=== PATIENT | female | born 1985 | race American Indian/Alaskan Native ===

== ENCOUNTER 2018-11-10 12:08 | Emergency (ER) | payer MEDICARE ==
--- NOTE | 2018-11-10 12:50 | Event Note ---
ED Screening Note Date of service: 11/10/18 Time: 12:48 ED Screening Note: 33 y o female presents with left frontal/orbital headache x last night, 5/10 intensity no trauma, neg v/n/ blurred vision This initial assessment/diagnostic orders/clinical plan/treatment(s) is/are subject to change based on patients health status, clinical progression and re- assessment by fellow clinical providers in the ED. Further treatment and workup at subsequent clinical providers discretion. Patient/guardian urged not to elope from the ED as their condition may be serious if not clinically assessed and managed. Initial orders include: acc eval
[2018-11-10 12:51] VITALS: BP 123/88
[2018-11-10] MEDS ORDERED: ONDANSETRON 4 MG ODT TAB PO ONE (15:59)
[2018-11-10] MEDS ORDERED: KETOROLAC 30 MG/1 ML INJ IM ONE (15:59)
--- NOTE | 2018-11-10 16:07 | Emergency Department Report ---
ED Headache HPI - General Chief Complaint: Headache Stated Complaint: MIGRAINE Time Seen by Provider: 11/10/18 12:48 Source: patient, RN notes reviewed Exam Limitations: no limitations - History of Present Illness Initial Comments: This is a 33-year-old -[place] female who presents to the emergency room with a headache for 1 day. Patient reports sinus pressure around left eye and congestion for 3 weeks with congestion. Patient states headache for 24 hours. She is taking NSAIDs and cold and flu medication with no improvement of symptoms. Reports headache is worse when she leans forward. She denies fever, chills, nausea, vomiting, chest pain, coryza, shortness of breath. Timing/Duration: 24 hours Quality: severe Head Injury Location: frontal Recent Head Trauma: no recent headache/trauma Modifying Factors: improves with: movement Associated Symptoms: facial pain, nasal congestion, nasal drainage. denies: confusion, fatigue, fever/chills, flushing, loss of consciousness, nausea/vomiting, numbness in legs/feet, rash, seizures, sinus infection, stiff neck, vision changes, weakness Allergies/Adverse Reactions: Allergies No Known Allergies Allergy (Verified 08/26/14 12:31) Home Medications: Ambulatory Orders HYDROcodone/APAP 5-325 [[place] 5-325 mg TAB] 1 each PO Q6H PRN #20 tablet 02/16/15 Pnv Plus Multivit Tab 1 tab PO DAILY 02/17/15 Amoxicillin/Potassium Clav [Augmentin 875-125 Tablet] 1 each PO BID #10 tablet 11/10/18 Fluticasone [Flonase] 1 spray NS QDAY #1 bottle 11/10/18 Ibuprofen [Motrin 800 MG tab] 800 mg PO Q8HR PRN #30 tablet 11/10/18 ED Review of Systems ROS: Stated complaint: MIGRAINE Other details as noted in HPI Constitutional: denies: chills, fever Eyes: denies: eye pain, eye discharge, vision change ENT: congestion. denies: ear pain, throat pain Respiratory: denies: cough, shortness of breath, wheezing Cardiovascular: denies: chest pain, palpitations Gastrointestinal: denies: abdominal pain, nausea, diarrhea Skin: denies: rash, lesions Neurological: headache. denies: weakness, paresthesias Psychiatric: denies: anxiety, depression ED Past Medical Hx - Past Medical History Hx Hypertension: No Hx Congestive Heart Failure: No Hx Diabetes: No Hx Deep Vein Thrombosis: No Hx Renal Disease: No Hx Sickle Cell Disease: No Hx Seizures: No Hx Asthma: No Hx COPD: No Additional medical history: MRSA - Surgical History Additional Surgical History: left shoulder - Social History Smoking Status: Never Smoker Substance Use Type: None - Medications Home Medications: Home Medications Medication Instructions Recorded Confirmed Last Taken Type HYDROcodone/APAP 5-325 [[place] 1 each PO Q6H PRN #20 tablet 02/16/15 Unknown Rx 5-325 mg TAB] Pnv Plus Multivit Tab 1 tab PO DAILY 02/17/15 02/17/15 Unknown History Amoxicillin/Potassium Clav 1 each PO BID #10 tablet 11/10/18 Unknown Rx [Augmentin 875-125 Tablet] Fluticasone [Flonase] 1 spray NS QDAY #1 bottle 11/10/18 Unknown Rx Ibuprofen [Motrin 800 MG tab] 800 mg PO Q8HR PRN #30 tablet 11/10/18 Unknown Rx ED Physical Exam - General Limitations: No Limitations General appearance: alert, in no apparent distress - Eye Eye exam: Present: normal appearance - ENT ENT exam: Present: mucous membranes moist, TM's normal bilaterally, normal external ear exam, other (turbinates mildly congested with mucoid discharge, tenderness over frontal sinuses) - Neck Neck exam: Present: normal inspection - Respiratory Respiratory exam: Present: normal lung sounds bilaterally. Absent: respiratory distress - Cardiovascular Cardiovascular Exam: Present: regular rate, normal rhythm. Absent: systolic murmur, diastolic murmur, rubs, gallop - GI/Abdominal GI/Abdominal exam: Present: soft, normal bowel sounds - Neurological Exam Neurological exam: Present: alert, oriented X3, normal gait - Psychiatric Psychiatric exam: Present: normal affect, normal mood - Skin Skin exam: Present: warm, dry, intact, normal color. Absent: rash ED Course Vital Signs 11/10/18 11/10/18 12:48 16:16 Temperature 98.2 F Pulse Rate 90 Respiratory 18 18 Rate Blood Pressure 123/88 O2 Sat by Pulse 100 Oximetry ED Medical Decision Making - Medical Decision Making Patient examined by me and stable. No distress noted. Vitals normal. Analgesics while in the ER. Frontal sinus tender on palpation, turbinates moderately congested with purulent discharge. These findings are suggestive of acute sinusitis. Start augmentin, ibuprofen, and floanse. Reviewed results with patient. Discharged home stable. Follow up with Primary Care Provider in 2-3 days. Critical care attestation.: If time is entered above; I have spent that time in minutes in the direct care of this critically ill patient, excluding procedure time. ED Disposition Clinical Impression: Headache Qualifiers: Headache type: tension-type Headache chronicity pattern: acute headache Intractability: not intractable Qualified Code(s): G44.209 - Tension-type headache, unspecified, not intractable Frontal sinusitis Qualifiers: Chronicity: acute Recurrence: non-recurrent Qualified Code(s): J01.10 - Acute frontal sinusitis, unspecified Disposition: TO HOME OR SELFCARE Is pt being admited?: No Does the pt Need Aspirin: No Condition: Stable Instructions: Tension Headache (ED), Sinusitis (ED) Additional Instructions: Use warm moist compresses over sinuses. Use ibuprofen or Tylenol for pain. Use nasal saline spray. Avoid taking antihistamines. Follow up with Primary Care Provider if fever, short of breath, chest pain, or symptoms do not improve as discussed. Prescriptions: Amoxicillin/Potassium Clav [Augmentin 875-125 Tablet] 1 each PO BID #10 tablet Fluticasone [Flonase] 1 spray NS QDAY #1 bottle Ibuprofen [Motrin 800 MG tab] 800 mg PO Q8HR PRN #30 tablet PRN Reason: Pain Referrals: [facility] [Outside] - 3-5 Days [facility] [Outside] - 3-5 Days [facility] [Outside] - 3-5 Days Forms: Work/School Release Form(ED) Time of Disposition: 16:57
== END 2018-11-10 17:32 | disposition home or self-care (01) ==
LOC: ED 12:08
DX: G44.209 Tension-type headache, unspecified, not intractable (principal); J01.10 Acute frontal sinusitis, unspecified; Z79.1 Long term (current) use of non-steroidal anti-inflammatories (NSAID); Z79.899 Other long term (current) drug therapy
CPT/HCPCS: 96372; 99282; J1885; Q0162

== ENCOUNTER 2018-11-23 09:26 | Emergency (ER) | payer MEDICARE ==
[2018-11-23 11:44] LABS: HCG Qualitative,Urine Negative (Negative)
--- NOTE | 2018-11-23 13:08 | Emergency Department Report ---
ED Female HPI - General Chief complaint: Vaginal Bleeding Stated complaint: VAG BLEEDING/HEADACHE Time Seen by Provider: 11/23/18 11:19 Source: family Mode of arrival: Ambulatory Limitations: No Limitations - History of Present Illness Initial comments: Patient is a 33-year-old female presents to ED complaining of residual. For the past 3 days. Patient states that it is ago she began having vaginal bleed similar to her menstrual cycle. Patient states the last nausea. With approximately simples she was surprised that the start of bleeding. Patient denies any control or taking any medications. Patient denies fevers/chills/nausea vomiting/abdominal pain MD Complaint: vaginal bleeding Severity: mild - Related Data Home Medications Medication Instructions Recorded Confirmed Last Taken Pnv Plus Multivit Tab 1 tab PO DAILY 02/17/15 02/17/15 Unknown Previous Rx's Medication Instructions Recorded Last Taken Type HYDROcodone/APAP 5-325 [[place] 1 each PO Q6H PRN #20 tablet 02/16/15 Unknown Rx 5-325 mg TAB] Amoxicillin/Potassium Clav 1 each PO BID #10 tablet 11/10/18 Unknown Rx [Augmentin 875-125 Tablet] Fluticasone [Flonase] 1 spray NS QDAY #1 bottle 11/10/18 Unknown Rx Ibuprofen [Motrin 800 MG tab] 800 mg PO Q8HR PRN #30 tablet 11/23/18 Unknown Rx Allergies Allergy/AdvReac Type Severity Reaction Status Date / Time No Known Allergies Allergy Verified 08/26/14 12:31 ED Review of Systems ROS: Stated complaint: VAG BLEEDING/HEADACHE Other details as noted in HPI Comment: All other systems reviewed and negative ED Past Medical Hx - Past Medical History Previous Medical History?: Yes Hx Hypertension: No Hx Congestive Heart Failure: No Hx Diabetes: No Hx Deep Vein Thrombosis: No Hx Renal Disease: No Hx Sickle Cell Disease: No Hx Seizures: No Hx Asthma: No Hx COPD: No Additional medical history: MRSA - Surgical History Past Surgical History?: Yes Additional Surgical History: left shoulder - Social History Smoking Status: Never Smoker Substance Use Type: None - Medications Home Medications: Home Medications Medication Instructions Recorded Confirmed Last Taken Type HYDROcodone/APAP 5-325 [[place] 1 each PO Q6H PRN #20 tablet 02/16/15 Unknown Rx 5-325 mg TAB] Pnv Plus Multivit Tab 1 tab PO DAILY 02/17/15 02/17/15 Unknown History Amoxicillin/Potassium Clav 1 each PO BID #10 tablet 11/10/18 Unknown Rx [Augmentin 875-125 Tablet] Fluticasone [Flonase] 1 spray NS QDAY #1 bottle 11/10/18 Unknown Rx Ibuprofen [Motrin 800 MG tab] 800 mg PO Q8HR PRN #30 tablet 11/23/18 Unknown Rx ED Physical Exam - General Limitations: No Limitations General appearance: alert, in no apparent distress - Head Head exam: Present: atraumatic, normocephalic - Eye Eye exam: Present: normal appearance - ENT ENT exam: Present: mucous membranes moist - Neck Neck exam: Present: normal inspection - Respiratory Respiratory exam: Present: normal lung sounds bilaterally. Absent: respiratory distress - Cardiovascular Cardiovascular Exam: Present: regular rate, normal rhythm. Absent: systolic murmur, diastolic murmur, rubs, gallop - GI/Abdominal GI/Abdominal exam: Present: soft, normal bowel sounds - Extremities Exam Extremities exam: Present: normal inspection - Back Exam Back exam: Present: normal inspection - Neurological Exam Neurological exam: Present: alert, oriented X3 - Psychiatric Psychiatric exam: Present: normal affect, normal mood - Skin Skin exam: Present: warm, dry, intact, normal color. Absent: rash ED Course Vital Signs 11/23/18 09:50 Temperature 98.2 F Pulse Rate 80 Respiratory 18 Rate Blood Pressure 126/77 [right] O2 Sat by Pulse 99 Oximetry ED Medical Decision Making - Medical Decision Making 33-year-old female presents with dysfunctional uterine bleed. Patient is having heavy bleeding at this time. test is negative Discussed findings with the patient. Discussed the patient to follow up with [facility] [employer] as referred. On my examination patient is a nontender abdomen and is in no distress at this time. Patient is hemodynamically stable and is to follow-up with [employer] [facility] as referred. Critical care attestation.: If time is entered above; I have spent that time in minutes in the direct care of this critically ill patient, excluding procedure time. ED Disposition Clinical Impression: Irregular bleeding, Menometrorrhagia Disposition: - TO HOME OR SELFCARE Is pt being admited?: No Does the pt Need Aspirin: No Condition: Stable Instructions: Dysfunctional Uterine Bleeding (ED) Additional Instructions: Make sure to follow up with the primary care physician as discussed. Take all your medications as you've been prescribed. If you have any worsening symptoms or develop new symptoms please return to ED immediately. Prescriptions: Ibuprofen [Motrin 800 MG tab] 800 mg PO Q8HR PRN #30 tablet PRN Reason: Pain Referrals: PRIMARY CARE, [Primary Care Provider] - 3-5 Days [facility] [Outside] - 3-5 Days [facility] [Outside] - 3-5 Days [facility] [Provider Group] - 3-5 Days [facility] [Provider Group] - 3-5 Days Forms: Work/School Release Form(ED) Time of Disposition: 13:18
[2018-11-23 13:45] VITALS: BP 124/71
== END 2018-11-23 13:43 | disposition home or self-care (01) ==
LOC: ED 09:26
DX: N92.1 Excessive and frequent menstruation with irregular cycle (principal); Z86.14 Personal history of Methicillin resistant Staphylococcus aureus infection; Z98.890 Other specified postprocedural states; Z79.899 Other long term (current) drug therapy
CPT/HCPCS: 81025

== ENCOUNTER 2020-11-19 21:09 | Emergency (ER) | payer MEDICARE ==
--- NOTE | 2020-11-19 21:50 | Event Note ---
ED Screening Note ED Screening Note: LEFT SIDE SHOULDER- CHEST AND SCAPULA PAIN SHARP IN NATURE STARTED THIS AM WORSE TONIGHT ANXIOUS NO FALL OR TRAUMA NO FEVER OR CHILLS INC RR/ TACHYCARDIA PMH MRSA L SHOULDER REQUIRING SURGERY LMP 9- RX NONE DENIES C/E/D DID NOT GET COVID IMMUNIZATION This initial assessment/diagnostic orders/clinical plan/treatment(s) is/are subject to change based on patients health status, clinical progression and re- assessment by fellow clinical providers in the ED. Further treatment and workup at subsequent clinical providers discretion. Patient/guardian urged not to elope from the ED as their condition may be serious if not clinically assessed and managed. Initial orders include: LABS/MONITOR/URI/PE
--- NOTE | 2020-11-19 21:58 | Emergency Department Report ---
ED General Adult HPI - General Chief complaint: Chest Pain Stated complaint: Left-sided neck pain, left lateral thorax pain, chest wall pain Time Seen by Provider: 11/19/20 21:40 Source: patient, RN notes reviewed Mode of arrival: Ambulatory Limitations: No Limitations - History of Present Illness Initial comments: The patient was evaluated in the emergency department for symptoms described in the history of present illness. He/she was evaluated in the context of the global COVID-19 pandemic, which necessitated consideration that the patient might be at risk for infection with the virus that causes COVID-19. Institutional protocols and algorithms that pertain to the evaluation of patients at risk for COVID-19 are in a state of rapid change based on information released by regulatory bodies including the CDC and federal and state organizations. These policies and algorithms were followed during the patient's care in the emergency department. Please note that these policies, procedures and recommendations changed on a rapid basis. During the history and physical examination, I am chaperoned by Alon Laurent The patient is a right-hand dominant female, who is 35 years old, who is not known to myself previously. The patient has a very distant history of orthopedic surgery for her left shoulder, and is right-hand dominant. She s tates that she is not . The patient presents to the ER today with a complaint of approximately 15 hours of nontraumatic left paracervical muscular pain, left posterior scapular muscular pain, left lateral thoracic muscular pain, anterior chest wall pain. The patient states her pain started in her left shoulder, and then involved her left neck, left posterior thorax, and left anterior chest. Her pain is throbbing and aching, increases with palpation and range of motion, and it decreases with rest. She denies travel, surgery, immobilization, oral contraceptive use, leg pain, leg swelling, DVT and pulmonary embolism risk factors, and denies a personal/family history of CAD, PE, DVT. The patient has not taking any pain medication at home. The patient denies Covid symptoms. The patient denies exertional shortness of breath. The patient denies additional complaints at this time. The patient is adamant that she is not . -: hour(s) Location: neck, chest, back, left, upper extremity Radiation: other (As per history of present illness) Quality: other Consistency: other Improves with: other Worsens with: other - Related Data Previous Rx's Medication Instructions Recorded Last Taken Type Fluticasone [Flonase] 1 spray NS QDAY #1 bottle 11/10/18 Unknown Rx Acetaminophen [Non-Aspirin Extra 500 mg PO Q6HR PRN #30 tablet 11/20/20 Unknown Rx Strength] Vit-Fe Fumar-FA [ 1 tab PO QDAY #30 tablet 11/20/20 Unknown Rx Vitamin] Allergies Allergy/AdvReac Type Severity Reaction Status Date / Time No Known Allergies Allergy Verified 11/19/20 21:25 ED Review of Systems ROS: Stated complaint: LEFT SIDE AND CHEST PAIN X4HRS Other details as noted in HPI Constitutional: denies: fever Eyes: denies: eye discharge ENT: denies: epistaxis Respiratory: denies: cough Cardiovascular: chest pain Gastrointestinal: denies: abdominal pain, nausea, vomiting, hematemesis, melena, hematochezia Genitourinary: denies: abnormal menses Musculoskeletal: back pain, arthralgia, myalgia Neurological: denies: weakness Psychiatric: anxiety Hematological/Lymphatic: denies: easy bleeding ED Past Medical Hx - Past Medical History Hx Hypertension: No Hx Congestive Heart Failure: No Hx Diabetes: No Hx Deep Vein Thrombosis: No Hx Renal Disease: No Hx Sickle Cell Disease: No Hx Seizures: No Hx Asthma: No Hx COPD: No Additional medical history: MRSA - Surgical History Additional Surgical History: left shoulder - Social History Smoking Status: Never Smoker Substance Use Type: None - Medications Home Medications: Home Medications Medication Instructions Recorded Confirmed Last Taken Type Fluticasone [Flonase] 1 spray NS QDAY #1 bottle 11/10/18 Unknown Rx Acetaminophen [Non-Aspirin Extra 500 mg PO Q6HR PRN #30 tablet 11/20/20 Unknown Rx Strength] Vit-Fe Fumar-FA [ 1 tab PO QDAY #30 tablet 11/20/20 Unknown Rx Vitamin] ED Physical Exam - General Limitations: No Limitations General appearance: alert, anxious - Head Head exam: Present: atraumatic, normocephalic - Eye Eye exam: Present: normal appearance, EOMI - ENT ENT exam: Present: normal exam, normal orophraynx, mucous membranes moist, normal external ear exam - Neck Neck exam: Present: normal inspection, tenderness, full ROM, other (There is reproducible left posterior paracervical muscular tenderness. There is left- sided trapezius tenderness. There is left posterior scapular muscular t enderness). Absent: meningismus - Respiratory Respiratory exam: Present: normal lung sounds bilaterally, chest wall tenderness. Absent: respiratory distress, wheezes, rales, rhonchi, stridor - Cardiovascular Cardiovascular Exam: Present: regular rate, normal rhythm, normal heart sounds. Absent: bradycardia, tachycardia, irregular rhythm, systolic murmur, diastolic murmur, rubs, gallop - GI/Abdominal GI/Abdominal exam: Present: soft. Absent: distended, tenderness, guarding, r ebound, rigid, pulsatile mass - Extremities Exam Extremities exam: Present: normal inspection, full ROM, other (2+ pulses noted in the bilateral upper and lower extremities. There is no palpable cord. negative Homans sign. Muscular compartments are soft. The pelvis is stable.). Absent: pedal edema, calf tenderness - Back Exam Back exam: Present: normal inspection, muscle spasm, paraspinal tenderness. Absent: tenderness, CVA tenderness (R) - Neurological Exam Neurological exam: Present: alert, oriented X3, normal gait, other (No facial droop. Tongue midline. Extraocular movements intact bilaterally. Facial sensation intact to light touch in V1, V2, V3 distribution bilaterally. 5 and a 5 strength in 4 extremities. Sensation intact to light touch in 4 extremities. ). Absent: motor sensory deficit - Psychiatric Psychiatric exam: Present: anxious - Skin Skin exam: Present: warm, dry, intact, normal color. Absent: rash ED Course Vital Signs 11/19/20 11/20/20 21:19 00:43 Temperature 97.4 F L 98.4 F Pulse Rate 106 H 84 Respiratory 36 H 15 Rate Blood Pressure 123/79 Blood Pressure 96/65 [Right] O2 Sat by Pulse 100 99 Oximetry - Reevaluation(s) Reevaluation #1: 11/19/20 23:17 Differential diagnosis, including but not limited to: Sprain, strain, muscular neck pain, muscular lateral thorax pain, pneumothorax, pneumonia, coronary artery disease, pulmonary embolism Assessment and plan: 35-year-old female, who was afebrile, with resolved tachycardia, resolved tachypnea, who denies DVT and pulmonary embolism risk factors, who is low risk by Wells criteria for pulmonary embolism, with a negative D-dimer, unremarkable EKG, negative troponin x1, in the context of over 8 hours of chest pain, as per the [employer] clinical policy, acute myocardial infarction is excluded with 1 set of cardiac enzymes/troponins, who is low risk for major adverse cardiac event as per heart score. [place] improved after Tylenol and intramuscular morphine. Unexpectedly, her qualitative serum test is positive, so we will therefore obtain x-ray chest with patient. We will discuss x-ray of the chest with patient. 11/20/20 00:48 Patient reassessed multiple times. Quant hCG very positive. Bedside [id number] ultrasound confirms intrauterine without evidence of free fluid. heartbeat is appreciated. Risks, benefitsalternatives of x- ray of the chest have discussed extensively with the patient. She provides verbal and written informed consent for acquisition of x-ray the chest. 2 view x-ray of the chest is unremarkable. Repeat vital signs reviewed and appreciated, tachypnea, tachycardia are resolved. On final reevaluation, patient resting comfortably on her side, in no acute distress, and endorses improvement/resolution of pain Patient does not appear to have an emergent medical condition [facility] She may follow-up with her outpatient primary care doctor. She will also follow-up with an outpatient JOB COACH/JOB DEVELOPER for her unexpected test. Return precautions are reviewed. Patient articulated understanding. ED Medical Decision Making - Lab Data Result diagrams: 11/19/20 21:51 11/19/20 21:51 Vital Signs 11/19/20 21:19 Temperature 97.4 F L Pulse Rate 106 H Respiratory 36 H Rate Blood Pressure 123/79 O2 Sat by Pulse 100 Oximetry Lab Results 11/19/20 11/19/20 11/19/20 Range/Units 21:51 21:51 21:51 WBC 5.5 (4.5-11.0) K/mm3 RBC 4.13 (3.65-5.03) M/mm3 Hgb 11.6 (10.1-14.3) gm/dl Hct 35.7 (30.3-42.9) % MCV 86 (79-97) fl MCH 28 (28-32) pg MCHC 33 (30-34) % RDW 14.8 (13.2-15.2) % Plt Count 216 (140-440) K/mm3 Lymph % (Auto) 31.1 (13.4-35.0) % Sully % (Auto) 5.7 (0.0-7.3) % Eos % (Auto) 2.3 (0.0-4.3) % Baso % (Auto) 0.9 (0.0-1.8) % Lymph # (Auto) 1.7 (1.2-5.4) K/mm3 Sully # (Auto) 0.3 (0.0-0.8) K/mm3 Eos # (Auto) 0.1 (0.0-0.4) K/mm3 Baso # (Auto) 0.1 (0.0-0.1) K/mm3 Seg Neutrophils % 60.0 (40.0-70.0) % Seg Neutrophils # 3.3 (1.8-7.7) K/mm3 PT (12.2-14.9) Sec. INR (0.87-1.13) D-Dimer (0-234) ng/mlDDU Sodium 138 (137-145) mmol/L Potassium 4.0 (3.6-5.0) mmol/L Chloride 103.5 (98-107) mmol/L Carbon Dioxide 21 L (22-30) mmol/L Anion Gap 18 mmol/L BUN 10 (7-17) mg/dL Creatinine 0.9 (0.6-1.2) mg/dL Estimated GFR > 60 ml/min BUN/Creatinine Ratio 11 % Glucose 88 (65-100) mg/dL Calcium 9.2 (8.4-10.2) mg/dL Total Bilirubin 0.70 (0.1-1.2) mg/dL AST 12 (5-40) units/L ALT 10 (7-56) units/L Alkaline Phosphatase 59 (35-129) units/L Troponin T < 0.010 (0.00-0.029) ng/mL C-Reactive Protein (0.00-1.30) mg/dL Total Protein 7.3 (6.3-8.2) g/dL Albumin 4.2 (3.9-5) g/dL Albumin/Globulin Ratio 1.4 % HCG, Qual Positive (Negative) 11/19/20 11/19/20 Range/Units 21:51 22:30 WBC (4.5-11.0) K/mm3 RBC (3.65-5.03) M/mm3 Hgb (10.1-14.3) gm/dl Hct (30.3-42.9) % MCV (79-97) fl MCH (28-32) pg MCHC (30-34) % RDW (13.2-15.2) % Plt Count (140-440) K/mm3 Lymph % (Auto) (13.4-35.0) % Sully % (Auto) (0.0-7.3) % Eos % (Auto) (0.0-4.3) % Baso % (Auto) (0.0-1.8) % Lymph # (Auto) (1.2-5.4) K/mm3 Sully # (Auto) (0.0-0.8) K/mm3 Eos # (Auto) (0.0-0.4) K/mm3 Baso # (Auto) (0.0-0.1) K/mm3 Seg Neutrophils % (40.0-70.0) % Seg Neutrophils # (1.8-7.7) K/mm3 PT 14.2 (12.2-14.9) Sec. INR 1.04 (0.87-1.13) D-Dimer 187.58 (0-234) ng/mlDDU Sodium (137-145) mmol/L Potassium (3.6-5.0) mmol/L Chloride (98-107) mmol/L Carbon Dioxide (22-30) mmol/L Anion Gap mmol/L BUN (7-17) mg/dL Creatinine (0.6-1.2) mg/dL Estimated GFR ml/min BUN/Creatinine Ratio % Glucose (65-100) mg/dL Calcium (8.4-10.2) mg/dL Total Bilirubin (0.1-1.2) mg/dL AST (5-40) units/L ALT (7-56) units/L Alkaline Phosphatase (35-129) units/L Troponin T (0.00-0.029) ng/mL C-Reactive Protein 0.20 (0.00-1.30) mg/dL Total Protein (6.3-8.2) g/dL Albumin (3.9-5) g/dL Albumin/Globulin Ratio % HCG, Qual (Negative) - EKG Data -: EKG Interpreted by Sd EKG shows normal: sinus rhythm Rate: normal - EKG Data 11/19/20 23:17 The EKG is interpreted at 21: 32 Sinus rhythm, 93 bpm. Normal axis, QTC 459 ms, high left ventricular voltage. Abnormal EKG. Not a STEMI. No prior for comparison. UT interval within normal limits. - Radiology Data Radiology results: pending, report reviewed, image reviewed CHEST 2 VIEWS INDICATION / CLINICAL INFORMATION: PAIN. COMPARISON: None avai lable. FINDINGS: SUPPORT DEVICES: None. HEART / MEDIASTINUM: No significant abnormality. LUNGS / PLEURA: No significant pulmonary or pleural abnormality. No pneumothorax. ADDITIONAL FINDINGS: No significant additional findings. IMPRESSION: 1. No acute findings. Signer Name: Sam Smith MD Signed: 11/19/2020 11:25 PM Workstation Name: [id number] Critical care attestation.: If time is entered above; I have spent that time in minutes in the direct care of this critically ill patient, excluding procedure time. ED Disposition Clinical Impression: Chest wall pain, Trapezius strain, Muscle strain of upper back, Disposition: 01 HOME / SELF CARE / HOMELESS Is pt being admited?: No Does the pt Need Aspirin: No Condition: Good Instructions: Muscle Strain, [id number], Nonspecific Chest Pain, Adult Additional Instructions: Rest, avoid heavy lifting, strenuous physical activity. Take the prescribed pain medications as needed and directed. Alternate ice packs and heat packs as needed for physical pain. Patient is found to be today. Take the vitamins as directed. Do not consume alcohol, tobacco, Motrin, ibuprofen, Naprosyn, or Aleve. Follow-up as soon as possible with an outpatient JOB COACH/JOB DEVELOPER doctor, to initiate outpatient care. Follow-up with an outpatient primary care doctor for chest wall pain, and left- sided neck pain, and muscular pain within the next 2 to 3 weeks. Please return to the emergency room right away with new pain, worsened pain, migration of pain, projectile vomiting, change in mental status, confusion, inability to tolerate liquid feeds, new, worsened or different symptoms not present on the initial emergency room evaluation. Referrals: DIANA ROCA MD [Staff Physician] - 3-5 Days CARLTON MARTIN JR, MD [Staff Physician] - 3-5 Days Heart Score - HEART Score History: Slightly suspicious EKG: Non-specific Age: < 45 Risk factors: No known risk factors Troponin: < normal limit HEART Score: 1 - EKG Read Time Time EKG Completed: 21:32 EKG Read Time: 21:32 - Critical Actions Critical Actions: 0-3 pts:0.9-1.7%risk of adverse cardiac event.Candidate for d ischarge
[2020-11-19] MEDS ORDERED: ACETAMINOPHEN 500 MG TAB PO ONE (22:24)
[2020-11-19] MEDS ORDERED: MORPHINE 2 MG/1 ML INJ IM ONE (22:24)
[2020-11-19 22:41] LABS: Alanine Aminotransferase 10 units/L (7-56); Albumin 4.2 g/dL (3.9-5); BUN/Creatinine Ratio 11; Blood Urea Nitrogen 10 mg/dL (7-17); Calcium 9.2 mg/dL (8.4-10.2); Hemolysis Index 5
[2020-11-19 22:54] LABS: Basophils # (Auto) 0.1 K/mm3 (0.0-0.1); Basophils % (Auto) 0.9 % (0.0-1.8); Eosinophils # (Auto) 0.1 K/mm3 (0.0-0.4); Eosinophils % (Auto) 2.3 % (0.0-4.3); Hematocrit 35.7 % (30.3-42.9); Hemoglobin 11.6 gm/dl (10.1-14.3); Lymphocytes # (Auto) 1.7 K/mm3 (1.2-5.4); Lymphocytes % (Auto) 31.1 % (13.4-35.0); Mean Corpuscular HGB Conc 33 % (30-34); Mean Corpuscular Volume 86 fl (79-97); Monocytes # (Auto) 0.3 K/mm3 (0.0-0.8); Monocytes % (Auto) 5.7 % (0.0-7.3); Platelet Count 216 K/mm3 (140-440); Red Blood Count 4.13 M/mm3 (3.65-5.03); Red Cell Distribution Width 14.8 % (13.2-15.2)
[2020-11-19 22:55] LABS: INR 1.04 (0.87-1.13)
--- NOTE | 2020-11-20 00:29 | XRay Report ---
CHEST 2 VIEWS INDICATION / CLINICAL INFORMATION: PAIN. COMPARISON: None available. FINDINGS: SUPPORT DEVICES: None. HEART / MEDIASTINUM: No significant abnormality. LUNGS / PLEURA: No significant pulmonary or pleural abnormality. No pneumothorax. ADDITIONAL FINDINGS: No significant additional findings. IMPRESSION: 1. No acute findings. Signer Name: Sam Smith MD Signed: 11/20/2020 12:25 AM Workstation Name: [id number]
[2020-11-20 00:43] VITALS: BP 96/65
--- NOTE | 2020-11-20 10:43 | Electrocardiograph Report ---
[facility] Test Date: 2020-11-19 Test Time: 21:32:11 Pat Name: DEMARCO MILIAN Department: Room: Gender: F Inspector Wreath: KAYLEIGH : 1985 Requested By: CHATA BARAKAT Order Number: [id number] Reading MD: Saul Avalos Measurements Intervals [place] Rate: 93 P: 43 OR: 151 QRS: 69 QRSD: 82 T: 36 QT: 368 QTc: 459 Interpretive Statements Sinus rhythm NSTW'S No previous ECG available for comparison Electronically Signed On 11-20-2020 10:43:10 EDT by Saul Avalos
== END 2020-11-20 00:59 | disposition home or self-care (01) ==
LOC: ED 21:09
DX: O9A.211 Injury, poisoning and certain other consequences of external causes complicating pregnancy, first trimester (principal); O26.891 Other specified pregnancy related conditions, first trimester; S29.012A Strain of muscle and tendon of back wall of thorax, initial encounter; S46.819A Strain of other muscles, fascia and tendons at shoulder and upper arm level, unspecified arm, initial encounter; R07.9 Chest pain, unspecified; Z3A.01 Less than 8 weeks gestation of pregnancy
CPT/HCPCS: 36415; 71046; 80053; 84484; 84702; 84703; 85025; 85379; 85610; 86140; 93005; 96372; 99284; J2270

== ENCOUNTER 2021-04-25 10:32 | Outpatient (CLI) | payer MEDICARE ==
[2021-04-25 10:58] VITALS: BP 110/63
[2021-04-25] MEDS ORDERED: LACTATED RINGERS 500 ML IV ONE (12:17)
[2021-04-25 12:57] LABS: Bilirubin,Urine NEG (Negative); Blood,Urine SM (Negative); Color,Urine Yellow (Yellow); Mucus,Urine FEW /HPF; Protein,Urine <15 mg/dL mg/dL (Negative); Urobilinogen,Urine < 2.0 mg/dL (<2.0); WBC,Urine < 1.0 /HPF (0.0-6.0)
--- NOTE | 2021-04-25 13:02 | Ultrasound Report ---
Limited OB Ultrasound HISTORY: VAGINAL BLEEDING - MARCIE AND PLACNTA LOCATION. TECHNIQUE: Grayscale and color imaging performed. COMPARISON: None FINDINGS: Single viable intrauterine gestation with cephalic presentation. MARCIE is 9 cm. Posterior mehrdad centa with no evidence of placenta previa. Normal heart rate. IMPRESSION: Single viable intrauterine gestation as above. Signer Name: Tom Del Valle MD Signed: 04/25/2021 12:58 PM Workstation Name: [id number]
--- NOTE | 2021-04-25 14:25 | Ultrasound Report ---
Biophysical profile Ultrasound HISTORY: VAGINAL BLEEDING - BPP. TECHNIQUE: Grayscale and color imaging performed. COMPARISON: None FINDINGS: Fetus received a score of 2 out of 2 for breathing, movement, posture/tone, and MARCIE. Total score was 8 out of 8. Heart rate during this portion of the exam was 149 bpm. IMPRESSION: Normal BPP. Signer Name: Tom Del Valle MD Signed: 04/25/2021 2:21 PM Workstation Name: [id number]
== END 2021-04-25 13:56 | disposition home or self-care (01) ==
LOC: TRG 10:32 → APU 10:33 → TRG 13:56
PROVIDERS: ATTEND Obstetrics & Gynecology
DX: O26.853 Spotting complicating pregnancy, third trimester (principal); Z3A.30 30 weeks gestation of pregnancy
CPT/HCPCS: 59025; 76815; 76819; 81001

== ENCOUNTER 2021-06-30 05:41 | Inpatient (IN) | payer MEDICARE, OTHER ==
[2021-06-30] MEDS ORDERED: ACETAMINOPHEN 325 MG TAB PO PRN (06:38)
[2021-06-30] MEDS ORDERED: ONDANSETRON 4 MG/2 ML INJ IV PRN (06:38)
[2021-06-30] MEDS ORDERED: MINERAL OIL 30 ML ORAL LIQD PO PRN (06:38)
[2021-06-30] MEDS ORDERED: fentaNYL 100 MCG/2 ML INJ IV PRN (06:38)
[2021-06-30] MEDS ORDERED: BUTORPHANOL 2 MG/1 ML INJ IV PRN (06:38)
[2021-06-30] MEDS ORDERED: LACTATED RINGERS 1,000 ML IV SCH (06:45)
[2021-06-30] MEDS ORDERED: OXYTOCIN DRIP 30,000 MILLIUNITS/500 ML BAG IV ONE (06:55)
--- NOTE | 2021-06-30 07:02 | History and Physical Report ---
History of Present Illness Date of examination: 06/30/21 History of present illness: 36-year-old -0-5-3 at 39-0/7 weeks presents with contractions and leaking fluid. 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 History of precipitous labor History of hemorrhage with previous blood transfusion Past History Past Surgical History: no surgical history Social history: no significant social history - Obstetrical History : 9 Para: 3 Spontaneous Abortions: 2 Induced : 3 Number of Living Children: 3 Medications and Allergies Allergies Allergy/AdvReac Type Severity Reaction Status Date / Time No Known Allergies Allergy Verified 11/19/20 21:25 Home Medications Medication Instructions Recorded Confirmed Last Taken Type Fluticasone [Flonase] 1 spray NS QDAY #1 bottle 11/10/18 Unknown Rx Acetaminophen [Non-Aspirin Extra 500 mg PO Q6HR PRN #30 tablet 11/20/20 Unknown Rx Strength] Vit-Fe Fumar-FA [ 1 tab PO QDAY #30 tablet 11/20/20 Unknown Rx Vitamin] Active Meds: Active Medications Acetaminophen (Acetaminophen 325 Mg Tab) 650 mg PO Q4H PRN PRN Reason: Pain, Mild (1-3) Butorphanol Tartrate (Butorphanol 2 Mg/1 Ml Inj) 1 mg IV Q2H PRN PRN Reason: Pain, Moderate(4-6) LABOR PAIN Fentanyl (Fentanyl 100 Mcg/2 Ml Inj) 100 mcg IV Q2H PRN PRN Reason: Pain,Severe (7-10) LABOR PAIN Lactated Ringer's (Lactated Ringers) 1,000 mls @ 125 mls/hr IV DIRECT SUSIE Mineral Oil (Mineral Oil 30 Ml Oral Liqd) 30 ml PO QHS PRN PRN Reason: Constipation Ondansetron HCl (Ondansetron 4 Mg/2 Ml Inj) 4 mg IV Q8H PRN PRN Reason: Nausea And Vomiting - Vital Signs Vital signs: Vital Signs Temp 99.0 F 06/30/21 06:11 Temp Pulse Resp BP Pulse Ox 99.0 F 85 118/70 99 06/30/21 06:11 06/30/21 06:50 06/30/21 06:25 06/30/21 06:50 - Physical Exam Breasts: Positive: deferred Cardiovascular: Regular rate Lungs: Positive: Clear to auscultation Abdomen: Positive: normal appearance, soft, normal bowel sounds Genitourinary (Female): Positive: normal external genitalia, normal perenium Vagina: Positive: normal moisture Uterus: Positive: enlarged Anus/Rectum: Positive: normal perianal skin Deep Tendon Reflex Grade: Normal +2 - Obstetrical FHR: category 1 Cervical Dilatation: 3 Cervical Effacement Percentage: 70 station: -1 Results All other labs normal. Assessment and Plan Admission to labor and delivery for spontaneous ruptured membranes at term with contractions and latent phase labor Plan Continuous monitoring Oxytocin per protocol GBS prophylaxis Pain medicine as needed Expect Maternal and status reassuring at bedside Larissa Vargas MD
[2021-06-30] MEDS ORDERED: AMPICILLIN/NS 2 GM/100 ML 2 GM/100 ML BAG IV ONE (08:00)
[2021-06-30 08:29] LABS: Hematocrit 28.3 % (30.3-42.9); Mean Corpuscular HGB Conc 32 % (30-34); Mean Corpuscular Volume 81 fl (79-97); Platelet Count 237 K/mm3 (140-440); Red Cell Distribution Width 14.5 % (13.2-15.2)
[2021-06-30] MEDS ORDERED: SODIUM CHLORIDE 0.9% 500 ML 500 ML IV ONE (09:00)
[2021-06-30] MEDS ORDERED: miSOPROStol 200 MCG TAB ONE (10:51)
[2021-06-30] MEDS ORDERED: LANOLIN/ZINC/DIMETHICONE (LANSINOH) 7 GM TP PRN ×2 (11:19)
[2021-06-30] MEDS ORDERED: MAGNESIUM HYDROXIDE (MOM) ORAL LIQD UDC PO PRN (11:19)
[2021-06-30] MEDS ORDERED: WITCH HAZEL/ GLYCERIN PAD TP PRN (11:19)
[2021-06-30] MEDS ORDERED: BENZOCAINE/MENTHOL 20/0.5% TOP SPRAY 56 GM TP PRN (11:19)
--- NOTE | 2021-06-30 11:34 | Procedure Note ---
OB Delivery Note - Delivery Date of Delivery: 06/30/21 Surgeon: TIA RANDOLPH Estimated blood loss: other (350 cc) - Vaginal Delivery presentation: vertex Delivery position: OA Intrapartum events: shoulder dystocia Delivery augmentation: pitocin Delivery monitor: external FHT, external uterine Route of delivery: Delivery placenta: spontaneous Delivery cord: 3 umbilical vessels Episiotomy: none Delivery laceration: none Anesthesia: none Delivery comments: Spontaneous vaginal delivery at 10:44 of liveborn female weighing 6 lb. 15 oz. over intact perineum with apgars of 7 and 9. Right anterior shoulder dystocia, resolved with Ema maneuver, suprapubic pressure, and delivery of posterior arm. Shoulder dystocia resolved within 1 minute. Baby placed immediately on mom's chest and dried and stimulated. 3 vessel cord double clamped and cut and baby taken to radiant warmer for evaluation. Spontaneous cry and respirations. Baby was bulb suctioned. Spontaneous delivery of intact placenta and membranes at 10:50. EBL 350 cc. Pitocin to IV fluids after delivery of placenta. Cytotec 800 mcg given rectally. Fundus firm and midline. Vaginal sweep negative. Sponge count correct. Mother and baby stable. Baby moving all extremities well.
[2021-06-30] MEDS ORDERED: METHYLERGONOVINE MALEATE 0.2 MG/ML VIAL IM ONE (11:51)
[2021-06-30] MEDS ORDERED: AMPICILLIN/NS 1 GM/50 ML 1 GM/50 ML BAG IV SCH (12:00)
[2021-06-30] MEDS: HYDROcodone/ACETAMINOPHEN 5-325 MG TAB PO PRN ×2 (12:47→20:33)
[2021-06-30 12:54] LABS: Hepatitis C Virus Antibody Non-Reactive (NonReactive)
[2021-06-30 17:28] LABS: Basophils # (Auto) 0.1 K/mm3 (0.0-0.1); Basophils % (Auto) 0.8 % (0.0-1.8); Hematocrit 28.3 % (30.3-42.9); Lymphocytes # (Auto) 0.9 K/mm3 (1.2-5.4); Lymphocytes % (Auto) 6.3 % (13.4-35.0); Mean Corpuscular HGB Conc 32 % (30-34); Mean Corpuscular Volume 81 fl (79-97); Monocytes # (Auto) 0.6 K/mm3 (0.0-0.8); Monocytes % (Auto) 4.2 % (0.0-7.3); Platelet Count 239 K/mm3 (140-440); Red Blood Count 3.49 M/mm3 (3.65-5.03); Red Cell Distribution Width 14.3 % (13.2-15.2)
[2021-06-30 18:10] LABS: Alanine Aminotransferase 11 units/L (7-56); Albumin 3.6 g/dL (3.9-5); Blood Urea Nitrogen 5 mg/dL (7-17); Calcium 8.8 mg/dL (8.4-10.2); Hemolysis Index 2
[2021-06-30 18:12] LABS: BUN/Creatinine Ratio 8
[2021-06-30 19:59] LABS: Amphetamine Screen,Urine Negative; Benzodiazepines Screen,Urine Negative; Cannabinoid Screen,Urine Negative; Cocaine Screen,Urine Negative; Methadone Screen,Urine Negative; Opiate Screen,Urine Negative
[2021-06-30] MEDS: IBUPROFEN 600 MG TAB PO SCH (20:33)
[2021-06-30] MEDS: FERROUS SULFATE 325 MG TAB PO SCH (22:56)
[2021-06-30] MEDS: DOCUSATE SODIUM 100 MG CAP PO SCH (22:56)
[2021-06-30 23:31] LABS: Hematocrit 26.5 % (30.3-42.9); Hemoglobin 8.4 gm/dl (10.1-14.3)
[2021-07-01] MEDS: HYDROcodone/ACETAMINOPHEN 5-325 MG TAB PO PRN ×2 (03:47→20:19)
[2021-07-01] MEDS: IBUPROFEN 600 MG TAB PO SCH ×4 (03:48→22:07)
[2021-07-01] MEDS: FERROUS SULFATE 325 MG TAB PO SCH ×2 (10:26→22:06)
[2021-07-01] MEDS: DOCUSATE SODIUM 100 MG CAP PO SCH ×2 (10:26→22:07)
--- NOTE | 2021-07-01 10:44 | Progress Note ---
Assessment and Plan PPD#1 doing fair 1. Pt encouraged to take motrin every 6-8hrs as needed and will re-evaluate; pt reassured no edema or tenderness noted at this time to both legs and thigh and both even in appearance 2. Routine care All questions encouraged and answered Subjective Date of service: 07/01/21 Principal diagnosis: PPD#1 Interval history: pt states that she feels tingling to both feet and it feels swollen. pt is breast and bottle feeding. Vag bleed much improved today per pt report and she has no lacerations. pt also states that she had pain to inner left thigh and leg during her . Pt just received her motrin med. Objective - Constitutional Vitals: Vital Signs - 12hr 07/01/21 07/01/21 07/01/21 00:26 03:47 03:48 Temperature 98.8 F Pulse Rate 78 Respiratory 20 18 18 Rate Blood Pressure 123/75 O2 Sat by Pulse 96 Oximetry O2 Sat by Pulse 98 Oximetry [ Bilateral] 07/01/21 07/01/21 07/01/21 04:45 08:20 08:51 Temperature 97.7 F Pulse Rate 72 Respiratory 18 Rate Blood Pressure 128/70 O2 Sat by Pulse 98 Oximetry O2 Sat by Pulse 99 99 Oximetry [ Bilateral] General appearance: Present: no acute distress - Neck Neck: normal ROM - Respiratory Respiratory effort: normal - Breasts Breasts: deferred - Cardiovascular Rhythm: regular Extremities: No edema - Gastrointestinal General gastrointestinal: Present: soft, non-tender - Genitourinary Female genitourinary: other (Peripad with moderate dark red lochia; no fundal tenderness and fundus 1cm below the umbilicus) - Neurologic Neurologic: moves all extremities - Psychiatric Psychiatric: cooperative - Labs CBC & Chem 7: 06/30/21 23:08 06/30/21 17:10 Labs: Abnormal lab results 06/30/21 06/30/21 06/30/21 Range/Units 17:10 17:10 23:08 WBC 14.1 H (4.5-11.0) K/mm3 RBC 3.49 L (3.65-5.03) M/mm3 Hgb 9.0 L 8.4 L (10.1-14.3) gm/dl Hct 28.3 L 26.5 L (30.3-42.9) % MCH 26 L (28-32) pg Lymph % (Auto) 6.3 L (13.4-35.0) % Lymph # (Auto) 0.9 L (1.2-5.4) K/mm3 Seg Neutrophils % 88.7 H (40.0-70.0) % Seg Neutrophils # 12.5 H (1.8-7.7) K/mm3 BUN 5 L (7-17) mg/dL Alkaline Phosphatase 176 H (35-129) units/L Total Protein 5.6 L (6.3-8.2) g/dL Albumin 3.6 L (3.9-5) g/dL Medications & Allergies - Medications Allergies/Adverse Reactions: Allergies No Known Allergies Allergy (Verified 07/01/21 05:54) Home Medications: Home Medications Medication Instructions Recorded Confirmed Last Taken Type Fluticasone [Flonase] 1 spray NS QDAY #1 bottle 11/10/18 07/01/21 Unknown Rx Acetaminophen [Non-Aspirin Extra 500 mg PO Q6HR PRN #30 tablet 11/20/20 07/01/21 Unknown Rx Strength] Vit-Fe Fumar-FA [ 1 tab PO QDAY #30 tablet 11/20/20 07/01/21 Unknown Rx Vitamin] Active Medications: Generic Name Dose Route Start Last Admin Trade Name Freq PRN Reason Stop Dose Admin Hydrocodone Bitart/Acetaminophen 2 each 06/30/21 11:19 07/01/21 03:47 Hydrocodone/Acetaminophen 5-325 Mg Tab PO 2 each Q6H PRN Administration Pain, Moderate (4-6) Benzocaine/Menthol 1 spray 06/30/21 11:19 Benzocaine/Menthol 20/0.5% [place] 56 Gm TP PRN PRN Episiotomy Pain Docusate Sodium 100 mg 06/30/21 22:00 07/01/21 10:26 Docusate Sodium 100 Mg Cap PO 100 mg BID SUSIE Administration Ferrous Sulfate 325 mg 06/30/21 12:00 07/01/21 10:26 Ferrous Sulfate 325 Mg Tab PO 325 mg BID SUSIE Administration Ibuprofen 600 mg 06/30/21 12:00 07/01/21 10:27 Ibuprofen 600 Mg Tab PO 600 mg Q6H SUSIE Administration Magnesium Hydroxide 30 ml 06/30/21 11:19 Magnesium Hydroxide (Mom) Oral Liqd Udc PO HS PRN Constipation Multi-Ingredient Ointment 1 applic 06/30/21 11:19 07/01/21 10:28 Lanolin/Zinc/Dimethicone (Lansinoh) 7 Gm TP 1 applic PRN PRN Administration dryness/cracking Witch Nicolasa/Glycerin 1 each 06/30/21 11:19 Witch Nicolasa/ Glycerin Pad TP PRN PRN Hemorrhoid/cleansing/soothing
[2021-07-02] MEDS: IBUPROFEN 600 MG TAB PO SCH ×4 (04:07→14:06)
[2021-07-02] MEDS: HYDROcodone/ACETAMINOPHEN 5-325 MG TAB PO PRN ×2 (06:09→14:33)
--- NOTE | 2021-07-02 09:30 | Discharge Summary ---
Providers - Providers Date of Admission: 06/30/21 07:12 Date of discharge: 07/02/21 Attending physician: MD Marci WISEMAN MD Primary care physician: DIANA MATHEW MD Hospitalization Disposition: 30 STILL A PATIENT Plan - Provider Discharge Summary Additional instructions: [] Smoking cessation referral if applicable(refer to patient education folder for contact #) [] Refer to [facility]'s [facility] Booklet Call your doctor immediately for: * Fever > 100.5 * Heavy vaginal bleeding ( >1 pad per hour) * Severe persistent headache * Shortness of breath * Reddened, hot, painful area to leg or breast * Drainage or odor from incision. * Keep incision clean and dry at all times and follow doctor's instructions regarding bathing/showering - Follow up plan Follow up: DIANA MATHEW MD [Primary Care Provider] - 7 Days
--- NOTE | 2021-07-02 09:40 | Discharge Summary ---
Providers - Providers Date of Admission: 06/30/21 07:12 Date of discharge: 07/02/21 Attending physician: MD Marci WISEMAN Primary care physician: DIANA MATHEW MD Hospitalization Reason for admission: rupture of membranes Delivery: Episiotomy: none Laceration: none complications: uterine atony Discharge diagnosis: IUP at term delivered baby: female Condition at discharge: Good Disposition: 01 HOME / SELF CARE / HOMELESS Plan - Discharge Medications Prescriptions: Ferrous Sulfate [Feosol 325 MG tab] 325 mg PO TID 30 Days #90 tablet Ibuprofen 600 mg PO Q6HR #40 cap - Provider Discharge Summary Activity: no sex for 6 weeks, no heavy lifting 4 weeks, no strenuous exercise Diet: routine Instructions: routine Additional instructions: [] Smoking cessation referral if applicable(refer to patient education folder for contact #) [] Refer to [facility]'s [facility] Booklet Call your doctor immediately for: * Fever > 100.5 * Heavy vaginal bleeding ( >1 pad per hour) * Severe persistent headache * Shortness of breath * Reddened, hot, painful area to leg or breast * Drainage or odor from incision. * Keep incision clean and dry at all times and follow doctor's instructions regarding bathing/showering Follow up with your Doctor in 4wks to discuss and schedule BTL - Follow up plan Follow up: DIANA MATHEW MD [Primary Care Provider] - 07/31/21 (Follow up with your Doctor in 4weeks to schedule BTL)
[2021-07-02] MEDS: DOCUSATE SODIUM 100 MG CAP PO SCH (10:07)
[2021-07-02] MEDS: FERROUS SULFATE 325 MG TAB PO SCH (10:08)
[2021-07-02 16:44] VITALS: BP 128/74
== END 2021-07-02 17:00 | disposition home or self-care (01) | DRG 807 ==
LOC: TRG 05:41 → APU 05:42 → TRG 06:38 → LD 07:12 → OB 14:39
PROVIDERS: ADMIT Obstetrics & Gynecology; ATTEND Obstetrics & Gynecology
PROC: 10E0XZZ Delivery of Products of Conception, External Approach (ICD-10-PCS; principal; 2021-06-30)
DX: O69.81X0 Labor and delivery complicated by cord around neck, without compression, not applicable or unspecified (principal); Z37.0 Single live birth; Z3A.39 39 weeks gestation of pregnancy; O66.0 Obstructed labor due to shoulder dystocia; Z3A.38 38 weeks gestation of pregnancy; Z20.822 Contact with and (suspected) exposure to COVID-19
CPT/HCPCS: 36415; 80053; 80307; 85014; 85018; 85025; 85027; 86592; 86706; 86762; 86803; 86850; 86900; 86901; 86920; 87806; 99211; G0378; G0463; J0290; J2210; J2590; J3010; J7120; U0003